=== PATIENT | male | born 1955 | race Asian ===

== ENCOUNTER 2018-01-20 05:42 | Inpatient (IN) | payer OTHER ==
[~2018-01-20] VITALS: Ht 170.2 cm; Wt 79.0 kg
[2018-01-20] VITALS (7 sets, daily range): BP systolic 98–145; BP diastolic 57–77; Ht 170.2 cm; Wt 79.0 kg
[2018-01-20 06:47] LABS: UA SPECIFIC GRAVITY 1.015 (1.005-1.035); microscopic required? YES; urine erythrocyte NEGATIVE (NEGATIVE)
[2018-01-20 06:49] LABS: BASOPHIL % 0.3 % (0-2)
[2018-01-20 07:00] LABS: CARBON DIOXIDE 22.1 mmol/L (21-32); CHLORIDE SERUM 101 mmol/L (98-107); CREATININE SERUM 0.9 mg/dL (0.7-1.3); GFR1 > 60 mL/min; GLUCOSE SERUM 132 mg/dL (74-106); POTASSIUM SERUM 3.5 mmol/L (3.5-5.1); SODIUM SERUM 136 mmol/L (136-145)
[2018-01-20 07:07] LABS: ALKALINE PHOSPHATASE 65 U/L (46-116); ALT/SGPT 26 U/L (16-63); AST/SGOT 41 U/L (15-37); BILIRUBIN TOTAL 1.3 mg/dL (0.20-1.00); LIPASE 197 IU/L (73-393); TOTAL PROTEIN, SERUM 8.1 g/dL (6.4-8.2)
[2018-01-20 07:12] LABS: ALBUMIN 2.4 g/dL (3.4-5.0)
[2018-01-20 07:55] LABS: PLATELET COUNT 125 x10^3mcL (130-400); RED CELL DISTRIBUTION WIDTH 14.8 % (11.5-14.5)
[2018-01-20 13:16] LABS: T3 TOTAL 0.79 ng/mL
[2018-01-20 13:19] LABS: PHOSPHOROUS 2.3 mg/dL (2.5-4.9)
[2018-01-20 13:27] LABS: FREE T4 1.17 ng/dL (0.76-1.46); FREE THYROXINE INDEX 2.8 ug/dL (1.4-4.5); T4(THYROXINE) 8.5 ug/dL (4.7-13.3)
[2018-01-20 17:24] LABS: AMPHETAMINE QUAL UR NONE DETECTED (See below)
[2018-01-21 03:11] VITALS: BP 117/76
[2018-01-21 05:49] LABS: BASOPHIL % 0.2 % (0-2); PLATELET COUNT 145 x10^3mcL (130-400)
[2018-01-21 05:50] LABS: CALCIUM 8.8 mg/dL (8.5-10.1); CARBON DIOXIDE 22.2 mmol/L (21-32); CHLORIDE SERUM 104 mmol/L (98-107); GLUCOSE SERUM 118 mg/dL (74-106); PHOSPHOROUS 3.2 mg/dL (2.5-4.9); POTASSIUM SERUM 3.3 mmol/L (3.5-5.1); SODIUM SERUM 138 mmol/L (136-145)
[2018-01-21 06:03] LABS: RED CELL DISTRIBUTION WIDTH 15.1 % (11.5-14.5)
[2018-01-21 06:29] LABS: CREATININE SERUM 0.8 mg/dL (0.7-1.3); GFR1 > 60 mL/min
[2018-01-21 08:00] VITALS: BP 122/71
[2018-01-21 11:22] VITALS: BP 102/72
[2018-01-21 15:23] VITALS: BP 106/60
[2018-01-21 19:55] VITALS: BP 100/55
[2018-01-22 00:13] VITALS: BP 115/70
[2018-01-22 03:18] VITALS: BP 111/68
[2018-01-22 05:52] LABS: CALCIUM 7.9 mg/dL (8.5-10.1); CARBON DIOXIDE 22.1 mmol/L (21-32); CHLORIDE SERUM 105 mmol/L (98-107); CREATININE SERUM 0.6 mg/dL (0.7-1.3); GFR1 > 60 mL/min; GLUCOSE SERUM 98 mg/dL (74-106); MAGNESIUM 1.9 mg/dL (1.8-2.4); PHOSPHOROUS 2.5 mg/dL (2.5-4.9); POTASSIUM SERUM 3.6 mmol/L (3.5-5.1); SODIUM SERUM 136 mmol/L (136-145)
[2018-01-22 06:25] LABS: BASOPHIL % 0.3 % (0-2); PLATELET COUNT 151 x10^3mcL (130-400)
[2018-01-22 06:26] LABS: RED CELL DISTRIBUTION WIDTH 15.3 % (11.5-14.5)
[2018-01-22 07:46] VITALS: BP 111/70
[2018-01-22] MEDS ORDERED: NOR5 PO (10:17)
[2018-01-22] MEDS ORDERED: FLO4 PO (10:17)
[2018-01-22] MEDS ORDERED: COR200 PO ×2 (10:17→10:26)
[2018-01-22] MEDS ORDERED: FELODIPINE5 M1 PO (10:25)
[2018-01-22 11:23] VITALS: BP 111/70
== END 2018-01-22 12:35 | disposition short-term general hospital (02) | DRG 693 ==
LOC: ED 05:42 → DU 10:02 → IC 10:02 → DU 10:02 → IC 21:53
PROVIDERS: Emergency Medicine; Family Medicine; Internal Medicine
PROC: 0DJD8ZZ Inspection of Lower Intestinal Tract, Via Natural or Artificial Opening Endoscopic (ICD-10-PCS; principal; 2018-01-22 09:30)
DX: N13.2 Hydronephrosis with renal and ureteral calculous obstruction (principal); E43 Unspecified severe protein-calorie malnutrition; N17.0 Acute kidney failure with tubular necrosis; I10 Essential (primary) hypertension; I48.91 Unspecified atrial fibrillation; E83.39 Other disorders of phosphorus metabolism; R74.0 Nonspecific elevation of levels of transaminase and lactic acid dehydrogenase [LDH]; E78.5 Hyperlipidemia, unspecified; Z53.29 Procedure and treatment not carried out because of patient's decision for other reasons; K64.4 Residual hemorrhoidal skin tags; E87.6 Hypokalemia; I70.0 Atherosclerosis of aorta; Z90.49 Acquired absence of other specified parts of digestive tract; Z68.26 Body mass index [BMI] 26.0-26.9, adult
CPT/HCPCS: 45378; 83880; 84439; J0282; J1200; J1610; J2250; J2310; J2543; J3010; J3475; J3490; J7030; J7040; Q0092; Q9967